=== PATIENT | female | born 1995 | race Caucasian/White ===

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

== ENCOUNTER 2017-09-03 14:19 | Emergency (ER) | payer BC ==
[~2017-09-03] VITALS: Ht 165.1 cm; Wt 52.7 kg
[2017-09-03 14:21] VITALS: TEMP 36.5; Ht 165.1 cm; Wt 52.7 kg
[2017-09-03] MEDS ORDERED: IBUPROFEN 200 MG TAB PO STA (14:52)
[2017-09-03] MEDS ORDERED: AZEL30SP NAE (15:02)
[2017-09-03] MEDS ORDERED: AMPH25CA PO (15:02)
[2017-09-03] MEDS ORDERED: IUD'IUD INT UTER (15:02)
[2017-09-03] MEDS ORDERED: OMEG10007 PO (15:02)
[2017-09-03] MEDS ORDERED: MULT-240 PO (15:02)
[2017-09-03] MEDS ORDERED: CETI10TA84 PO (15:02)
--- NOTE | 2017-09-03 15:31 | DIAGNOSTIC IMAGING REPORT ---
C-SPINE ROUTINE W/FLEX EXT HISTORY: 22 years-old Female Neck pain s/p excessive flexion and extension of neck acute neck pain COMPARISON: None available TECHNIQUE: 5 views of the cervical spine FINDINGS: 7 cervical type vertebral segments are present. There is straightening of the normal cervical lordosis. Intervertebral disc spaces are well-maintained. No acute fracture, subluxation or significant changes. Bilateral bony neuroforamina appear patent. Imaged lung apices appear clear. No prevertebral soft tissue swelling. IMPRESSION: 1. No acute fracture or subluxation. 2. Straightening of the normal cervical lordosis may be secondary to positioning or paraspinal muscle spasm. 3. No significant degenerative changes. The above report was generated using voice recognition software. It may contain grammatical, syntax or spelling errors. Electronically signed by: Mehrdad Mccabe M.D. 09/03/2017 3:30 PM Dictated Date/Time: 09/03/2017 3:29 PM
--- NOTE | 2017-09-03 15:44 | EMERGENCY ROOM VISIT NOTE ---
History First contact with patient: 14:28 Chief Complaint: BACK PAIN Stated Complaint: NECK/BACK INJURY & PAIN History of Present Illness The patient is a 22 year old female who presents to the Emergency Room via private vehicle accompanied by boyfriend with complaints of "neck/back injury and pain". The patient states that earlier today she became very angry at her boyfriend and began to experience agitation causing her to shake violently because of her anger. She states that she was thrashing back and forth and her boyfriend tried to console her by hugging her so she did not injure herself. She denies any thoughts of harm to self or others. She denies any chest pain or shortness of breath. She states that she has pain between her shoulder blades radiating up to her neck. It is worse with forward flexion. She rates the overall pain as a 5/10. She notes she sees her psychiatrist tomorrow and is on medication to help with her anger. Review of Systems A complete 6-point Review of Systems was discussed with the patient, with pertinent positives and negatives listed in the History of Present Illness. All remaining Review of Systems questions can be considered negative unless otherwise specified. Past Medical/Surgical History No pertinent. Family History No pertinent family history Social History Smoking Status: Never Smoker Alcohol Use: occasionally Drug Use: none Marital Status: single Occupation Status: [employer] student Current/Historical Medications Scheduled Amphetamine-Dextroamphetamine 25MG (Adderall Xr 25MG), 25 MG PO QAM Azelastine Hcl-Fluticasone Pro (Dymista), 1 SPRAY JENELLE BID Cetirizine (Zyrtec), 10 MG PO DAILY Fish Oil ([place]-3), 1 CAP PO DAILY Iud's (Paragard Intrauterine Process Controls Technician), 1 EA INT UTER UD Multiple Vitamins W/ Minerals (Womens One Daily), 1 TAB PO DAILY Scheduled PRN Albuterol (Ventolin Hfa), 2 PUFFS INH QID PRN for SOB/Wheezing Physical Exam Vital Signs Date Time Temp Pulse Resp B/P (MAP) Pulse Ox O2 Delivery O2 Flow Rate FiO2 09/03/17 15:56 82 20 128/72 98 09/03/17 14:21 36.5 96 20 136/96 100 Room Air Physical Exam VITAL SIGNS - Vital signs and nursing notes were reviewed. Stable. GENERAL - 22-year-old female appearing her stated age who is in no acute distress. Communicates well with provider and answers questions appropriately. SKIN - Gross examination of the entire body surface demonstrates no lacerations to the body surface. HEAD - Normocephalic, Atraumatic. No Canada's Sign or Raccoon's Eyes. EYES - PERRL with EOMI bilaterally. Without subconjunctival hemorrhage. Palpebral conjunctiva pink and moist with no injection. EARS - No deformities of external structures noted on gross examination bilaterally. No hemotympanum present. NOSE - Midline and without cyanosis. No epistaxis or clear watery discharge noted. Septum midline without deviation. MOUTH/OROPHARYNX - Without perioral cyanosis. NECK -Minimal tenderness to palpation over the cervical spinous processes. Marked L sided cervical paraspinal muscle tenderness noted. LUNGS - Chest wall symmetric without accessory muscle use, intercostals retractions, or central cyanosis. Normal vesicular breath sounds CTA B/L. No wheezes, rales, or rhonchi appreciated. CARDIAC - RRR with S1/S2. No murmur, rubs, or gallops appreciated. EXTREMITIES - No gross deformities noted of the extremities.+5/5 strength noted in UE/LE bilaterally. NEUROLOGIC - Cranial nerves II through XII grossly intact. Sensory intact to light touch throughout. PSYCH - A&O, and cooperates fully with examiner. Pt is very pleasant and interacts well with examiner. Medical Decision & Procedures ER Provider Diagnostic Interpretation: C-SPINE ROUTINE W/FLEX EXT HISTORY: 22 years-old Female Neck pain s/p excessive flexion and extension of neck acute neck pain COMPARISON: None available TECHNIQUE: 5 views of the cervical spine FINDINGS: 7 cervical type vertebral segments are present. There is straightening of the normal cervical lordosis. Intervertebral disc spaces are well-maintained. No acute fracture, subluxation or significant changes. Bilateral bony neuroforamina appear patent. Imaged lung apices appear clear. No prevertebral soft tissue swelling. IMPRESSION: 1. No acute fracture or subluxation. 2. Straightening of the normal cervical lordosis may be secondary to positioning or paraspinal muscle spasm. 3. No significant degenerative changes. The above report was generated using voice recognition software. It may contain grammatical, syntax or spelling errors. Electronically signed by: Mehrdad Mccabe M.D. 09/03/2017 3:30 PM Dictated Date/Time: 09/03/2017 3:29 PM Medications Administered Medications (Trade) Dose Ordered Sig/Cally Route Start Time Stop Time Status Last Admin Dose Admin Ibuprofen (Advil Tab) 400 mg NOW STAT PO 09/03/17 14:52 09/03/17 14:55 DC 09/03/17 15:02 400 MG Medical Decision Patient was seen and evaluated as above. She presents to us today with neck pain. She has no neurovascular deficit on exam. In this appears to be consistent with that of strain of the cervical spine favoring left side. It is reproducible on exam as well as having her forward flex. Because of the low mechanism of injury I do not believe that a CT is warranted of the neck. I believe the risks of radiation outweigh the benefits. Flexion extension views of the neck as well as routine C-spine films were obtained and found be negative. She was educated upon conservative management and offered a c-collar but declined. She is to follow-up with her psychiatrist tomorrow. She was educated upon management, educated upon worrisome symptoms in which to return, had questions as per discharge, and was discharged home in good condition. IMPRESSION: Neck Pain In the evaluation and treatment of this patient, the following differential diagnoses were considered: Musculoskeletal Strain, Discitis, Cervical Spine Fracture, Cervical Spine Dislocation, Cervical Spine Subluxation, Cervical Spondylosis, Fibromyalgia, Osteoarthritis, Polymyalgia Rheumatica, Psychogenic Pain Disorder, Tumor of Soft Tissue or Spine. Impression Primary Impression: Neck pain Departure Information Dispostion Home / Self-Care Condition GOOD Referrals Matty Crespo MD (PCP) Patient Instructions My [facility] Additional Instructions You have been treated in the Emergency Department for Neck Pain. For pain control, you can use the following [id number] medicines : - Regular strength (325mg/tab) Tylenol (acetaminophen) 2 tabs every 4-6 hours as needed. Do not exceed 12 tablets in a 24 hour period. Avoid taking more than 3 grams (3000 mg) of Tylenol per day. This includes any other sources of acetaminophen you may take on a regular basis. - Regular strength (200 mg/tab) Advil (ibuprofen) 1-2 tabs every 4-6 hours as needed. Do not exceed a dose of 3200 mg per day. If this is an acute injury, ice can be applied to the area of pain for the first 3 days to help decrease pain and inflammation. After the first 3 days, a heating pad can be used over the area for continued soothing relief. You should schedule a follow-up appointment in 2-3 days with your Primary Care Provider for further evaluation and treatment of your Neck pain. Please follow up tomorrow with your psychiatrist as you have indicated. Return to the Emergency Department if your current symptoms worsen despite treatment course outlined above, or if you develop any of the following symptoms : intractable pain despite aforementioned treatment course, loss of control of your bowel or bladder, numbness or tingling in your groin, or development of a fever. C-SPINE ROUTINE W/FLEX EXT HISTORY: 22 years-old Female Neck pain s/p excessive flexion and extension of neck acute neck pain COMPARISON: None available TECHNIQUE: 5 views of the cervical spine FINDINGS: 7 cervical type vertebral segments are present. There is straightening of the normal cervical lordosis. Intervertebral disc spaces are well-maintained. No acute fracture, subluxation or significant changes. Bilateral bony neuroforamina appear patent. Imaged lung apices appear clear. No prevertebral soft tissue swelling.
[2017-09-03 15:56] VITALS: BP 128/72; PULSE 82; O2SAT 98
[2017-09-03] MEDS ORDERED: PRVHFAIN INH (22:01)
== END 2017-09-03 15:59 | disposition home or self-care (01) ==
LOC: C.EDB 14:20 → C.EDD 15:59
DX: M54.2 Cervicalgia (principal); Z79.899 Other long term (current) drug therapy

== ENCOUNTER 2017-10-02 18:57 | Emergency (ER) | payer BC, OTHER ==
[~2017-10-02] VITALS: Ht 165.1 cm; Wt 51.7 kg
[~2017-10-02 18:57] MED LIST changes: -ALBUAER2 INH; -AMOX500C3 PO; +AMPH25CA PO; +AZEL30SP NAE; -ESCI10TA17 PO; +IUD'IUD INT UTER; +MULT-240 PO; +OMEG10007 PO; +PRVHFAIN INH
[2017-10-02 19:25] VITALS: TEMP 36.4; Ht 165.1 cm; Wt 51.7 kg
[2017-10-02] MEDS ORDERED: KETOROLAC TROMETHAMINE 60 MG/2 ML VIAL IM STA (20:06)
[2017-10-02] MEDS ORDERED: FLEXERIL HOME PACK 10 MG VIAL PO ONE (20:15)
[2017-10-02] MEDS ORDERED: CYCL5TAB PO (20:16)
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
[2017-10-02] MEDS ORDERED: LEVO19.5 INTRAD (20:33)
[2017-10-02 20:37] VITALS: BP 131/88; PULSE 90; O2SAT 99
== END 2017-10-02 20:38 | disposition home or self-care (01) ==
LOC: C.EDB 18:58 → C.EDD 20:38
DX: S16.1XXA Strain of muscle, fascia and tendon at neck level, initial encounter (principal); S46.911A Strain of unspecified muscle, fascia and tendon at shoulder and upper arm level, right arm, initial encounter; S46.912A Strain of unspecified muscle, fascia and tendon at shoulder and upper arm level, left arm, initial encounter; V43.62XA Car passenger injured in collision with other type car in traffic accident, initial encounter; J45.909 Unspecified asthma, uncomplicated; D68.51 Activated protein C resistance; Z79.899 Other long term (current) drug therapy